=== PATIENT | male | born 1960 | race Two or more races ===

== ENCOUNTER 2022-08-31 08:34 | Day surgery (SDC) | payer BC, SELFPAY ==
[2022-08-31] VITALS (11 sets, daily range): BP systolic 131–175; BP diastolic 79–101; PULSE 48–58; RESP 18–20; TEMP 36.8; O2SAT 94–99; BMI 41.3
--- NOTE | 2022-08-31 08:11 | IR_ITS ---
APPROVED REPORT Patient Location: Outpatient Sp[facility] Winding Machine Helper: PINO Cole RT (R) PROCEDURES Left heart catheterization Left ventriculogram Selective coronary angiogram Bilateral selective renal angiography INDICATION Three-vessel coronary disease on CAT scan, Numerous risk factors for coronary disease, Angina pectoris, Suspect renal artery stenosis, Suspect renovascular hypertension based on numerous drugs for hypertension and still poorly controlled Informed consent was obtained prior to the procedure. COMPLICATIONS None Estimated Blood Loss: Less than 10 mls TECHNIQUE One percent lidocaine was used to anesthetize the right groin. The right femoral artery was accessed via the Seldinger technique. A 4-Belarusian sheath was placed in the right femoral artery. The JL-4 and JR-4 catheter was also used to perform left heart catheterization left ventriculogram and selective coronary angiogram. At the end of the procedure the patient was transferred to the post-op holding area in stable condition for arterial sheath removal. ANGIOGRAPHIC RESULTS The left main artery Has a distal eccentric 20 to 30% stenosis The left anterior descending artery Has proximal 20 to 30% stenosis with mid vessel 30% stenosis The circumflex artery Nondominant with mild 10% diffuse luminal irregularities The right coronary artery Large dominant vessel proximal 10 to 20% stenoses with a distal 30 to 40% smooth stenosis The ANGEL ventriculogram reveals Normal 65% The left ventricular end-diastolic pressure 20 mmHg Right renal artery singular normal Left renal artery singular normal IMPRESSION Mild to moderate nonflow limiting coronary disease as described above Normal ejection fraction Mild elevated LVEDP consistent with hypertensive heart disease Normal renal arteries PLAN 1. Medical management 2. Risk factor modification Electronically signed by : Michael Lara MD 08/31/2022 14:05:22
[2022-08-31 09:25] LABS: Basophils # 0.2 K/mm3 (0-0.2); Basophils % 2.2 % (0.1-2.0); Eosinophils # 0.3 K/mm3 (0.0-0.4); Eosinophils % 4.2 % (0.1-12.0); Hematocrit 48.8 % (42.0-52.0); Hemoglobin 16.5 g/dL (14.1-18.0); Lymphocytes # 1.5 K/mm3 (0.7-4.5); Lymphocytes % 20.6 % (10-50); Mean Corpuscular HGB Conc 33.8 g/dL (31.8-35.4); Mean Corpuscular Hemoglobin 33.3 pg (27.0-31.2); Mean Corpuscular Volume 98.6 fl (80-94); Mean Platelet Volume 9.2 fl (7.4-10.4); Monocytes # 0.5 K/mm3 (0.1-1.0); Monocytes % 6.3 % (1.7-9.3); Neutrophils # 4.9 K/mm3 (1.8-7.8); Neutrophils % 66.7 % (37.0-80.0); Platelet Count 201 K/mm3 (142-424); Red Blood Count 4.95 M/mm3 (4.60-6.20); White Blood Count 7.4 K/mm3 (4.8-10.8)
[2022-08-31 09:29] LABS: Anion Gap 12.6 mEq/L (5-15); Blood Urea Nitrogen 19 mg/dl (9-20); Calcium 9.3 mg/dl (8.4-10.2); Carbon Dioxide 27 mmol/L (22.0-30.0); Chloride 101 mmol/L (98-107); Creatinine Clearance Estimated 83 mL/min (50-200); Estimated Glomerular Filt Rate 75 ml/min (>60); GFR (African American) 91 ML/MIN (>60); Glucose 101 mg/dl (74-100); Potassium 4.6 mmoL/L (3.5-5.1); Sodium 136 mmol/L (136-145)
== END 2022-08-31 14:31 | disposition home or self-care (01) ==
LOC: CATHLAB 08:36
PROVIDERS: PCP Family Medicine; Visit Provider Internal Medicine
DX: I25.118 Atherosclerotic heart disease of native coronary artery with other forms of angina pectoris (principal); I10 Essential (primary) hypertension; J44.9 Chronic obstructive pulmonary disease, unspecified; R06.09 Other forms of dyspnea; F17.210 Nicotine dependence, cigarettes, uncomplicated; Z79.899 Other long term (current) drug therapy; I15.0 Renovascular hypertension; I25.84 Coronary atherosclerosis due to calcified coronary lesion
CPT/HCPCS: 36252; 80048; 85025; 93458; 99152; 99153; C1725; C1769; J1644; Q9967

== ENCOUNTER → 2023-03-12 09:26 | Outpatient (CLI) | payer BC, MEDICARE, SELFPAY ==
[2023-03-12 10:22] LABS: Glucose,Fasting 108 mg/dl (74-100)
[2023-03-12 11:40] LABS: Glucose 1 Hour 203 mg/dL (74-100)
[2023-03-12 12:02] LABS: Hemoglobin A1C 5.2 % (4.0-6.0)
[2023-03-12 13:00] LABS: Glucose 2 Hour 152 mg/dL (74-100)
== END ==
PROVIDERS: PCP Family Medicine; Visit Provider Internal Medicine
DX: R73.09 Other abnormal glucose (principal)
CPT/HCPCS: 36415; 82951; 83036

== ENCOUNTER 2023-08-05 15:04 | Outpatient (CLI) | payer MEDICARE, SELFPAY ==
--- NOTE | 2023-08-05 15:06 | CA_ITS ---
FINAL REPORT CLINICAL HISTORY: CLAUDICATION LLE,SMOKER COMPARISON: None FINDINGS: Spectral and color Doppler waveform evaluation of the left lower extremity was performed. Spectral analysis was performed. Left lower extremity: Velocities cm/sec: WREATH MACHINE TENDER: 122 SFA mid: 31 SFA dist: 49 POP: 27 Hussein: 31 PT: 50 Waveforms are monophasic throughout IMPRESSION: Monophasic flow throughout the left leg, suggesting a more proximal stenosis. No focal occlusion is identified, however there is atherosclerotic disease throughout the left leg. Reviewed, Interpreted and Dictated by Sakina Duran MD Transcribed by Aleyda Leonard Authenticated and [facility]
--- NOTE | 2023-08-05 15:06 | CA_ITS ---
FINAL REPORT CLINICAL HISTORY: pain, edema and redness LL COMPARISON: None FINDINGS: DUPLEX VENOUS SONOGRAPHY OF THE LEFT LOWER EXTREMITY Multiple transverse and longitudinal scans were performed of the femoropopliteal deep venous system, with augmentation and compression maneuvers. HISTORY: Pain, edema, redness. FINDINGS: Superficial thrombophlebitis is noted in the greater saphenous vein, with areas of focal thrombus seen primarily from the knee to the ankle. Normal phasic flow was noted in the visualized deep venous system. No intraluminal increased echogenicity is noted to suggest thrombus. There is normal compression and augmentation of the venous structures. No abnormal venous collaterals are seen. IMPRESSION: No evidence of deep venous thrombosis of the left lower extremity. Superficial thrombophlebitis of the greater saphenous vein as described. Reviewed, Interpreted and Dictated by Sakina Duran MD Transcribed by Aleyda Leonard Authenticated and . [facility]
== END 2023-08-05 23:59 ==
PROVIDERS: PCP Family Medicine; Visit Provider Internal Medicine
DX: F17.200 Nicotine dependence, unspecified, uncomplicated (principal); I25.10 Atherosclerotic heart disease of native coronary artery without angina pectoris; M79.662 Pain in left lower leg; M79.89 Other specified soft tissue disorders; R23.8 Other skin changes; I73.9 Peripheral vascular disease, unspecified; R60.0 Localized edema
CPT/HCPCS: 93926; 93971

== ENCOUNTER 2023-09-06 12:45 | Outpatient (CLI) | payer MEDICARE, SELFPAY ==
--- NOTE | 2023-09-06 | CA_ITS ---
FINAL REPORT TECHNIQUE: Color Doppler, duplex Doppler and kam scale sonography of the bilateral neck arterial vasculature was performed. Velocities were measured in the carotid arteries. Stenosis evaluation based on the validated velocity criteria. CLINICAL HISTORY: bruit, smoker, abn ekg, History of DVT FINDINGS: The peak systolic velocity of the right common carotid artery is 87 cm/s. The peak systolic velocity of the right internal carotid artery is 85 cm/s and end diastolic velocity 26 cm/s. The ICA/CCA ratio is 1.4. A minimal amount of plaque is present. The right external carotid artery is patent. The right vertebral artery is patent with antegrade flow. The peak systolic velocity of the left common carotid artery is 94 cm/s. The peak systolic velocity of the left internal carotid artery is 88 cm/s and end diastolic velocity 18 cm/s. The ICA/CCA ratio is 1.0. A minimal amount of plaque is present. The left external carotid artery is patent.The left vertebral artery is patent with antegrade flow. IMPRESSION: Less than 50% bilateral carotid stenoses. Bilateral patent vertebral arteries with antegrade flow. If indicated, CTA or MRA could further evaluate. Reviewed, Interpreted and Dictated by Tre Louis MD Transcribed by Noemi Kauffman Authenticated and [facility]
--- NOTE | 2023-09-06 12:49 | CA_ITS ---
APPROVED REPORT EXAM: Comprehensive 2D, Doppler, and color-flow Echocardiogram Unstacker: Zenia Mcdonald RT(R) Ht: 6 ft 0 in Wt: 316lbs BSA: 2.59 BP: 176/89 mmHg Indications: abn EKG, COPD, murmur, smoker, HTN, family history of HD, pedal edema. Limited windows secondary to body habitus and lung interference. 2D Dimensions EF AP4 82.90 % GL Strain -16.9 % M-Mode Dimensions RVDd 2.51 cm (0.9-2.6) LA Diam 4.18 cm (1.9-4.0) LVDd 6.51 cm (3.5-5.7) LVDs 4.87 cm (3.5-5.7) IVSd 1.03 cm (0.6-1.1) PWd 1.18 cm (0.6-1.1) EF (Teich) 48.70% FS 25.20% EDV (Teich) 216.80 mL ESV (Teich) 111.20 mL LV Diastology E Decel Time 210 (160-240 msec) E/A Ratio 1.3 Mitral Valve MV E Max Nilo. 95.0 (40-130 cm/s) MV A Velocity 71.0 (40-130 cm/s) E/A Ratio 1.34 MV PHT 62.0 ms Left Ventricle The left ventricle is normal size. The left ventricular systolic function is normal. The left ventricular ejection fraction is within the normal range. There is increased LV wall thickness. Diastolic function is indeterminate. There is normal LV segmental wall motion. LVEF is 55%. Right Ventricle The right ventricle is normal size. The right ventricular systolic function is normal. There is increased RV wall thickness. Atria The left atrium size is normal. The right atrium is not well-visualized. The interatrial septum is not well-visualized. Aortic Valve The aortic valve leaflets are not well-visualized. There is no aortic valvular stenosis. No aortic regurgitation is present. Mitral Valve The mitral valve leaflets are mildly thickened. No evidence of mitral valve stenosis. Trace mitral regurgitation. Tricuspid Valve The tricuspid valve leaflets are thin and pliable. Trace tricuspid regurgitation. There is insufficient TR jet to estimate RVSP. Pulmonic Valve The pulmonic valve is not well-visualized. Great Vessels The aortic root is not well-visualized. The IVC is not well-visualized. Pericardium There is no pericardial effusion. Other Information Study Quality: Technically Difficult. Technically limited study due to body habitus. Conclusion Technically difficult study due to poor acoustic windows and body habitus. Grossly, normal biventricular systolic function. No significant valvular stenosis or regurgitation in the visualized valves. Electronically signed by : Coral Kim MD 09/09/2023 13:42:42
== END 2023-09-06 23:59 ==
LOC: RT 12:49
PROVIDERS: PCP Family Medicine; Visit Provider Internal Medicine
DX: M79.662 Pain in left lower leg (principal); M79.89 Other specified soft tissue disorders; R23.8 Other skin changes; I25.10 Atherosclerotic heart disease of native coronary artery without angina pectoris; Z82.49 Family history of ischemic heart disease and other diseases of the circulatory system; R94.31 Abnormal electrocardiogram [ECG] [EKG]; J44.9 Chronic obstructive pulmonary disease, unspecified; F17.200 Nicotine dependence, unspecified, uncomplicated; I10 Essential (primary) hypertension; R09.89 Other specified symptoms and signs involving the circulatory and respiratory systems
CPT/HCPCS: 93306; 93880